=== PATIENT | female | born 1990 | race Caucasian/White ===

== ENCOUNTER 2021-12-25 12:05 | Outpatient (CLI) | payer BC, SELFPAY ==
[2021-12-26 15:04] LABS: Strep B DNA Probe NEGATIVE (Negative)
== END 2021-12-25 12:06 | disposition home or self-care (01) ==
PROVIDERS: Visit Provider Advanced Practice Midwife
DX: Z34.83 Encounter for supervision of other normal pregnancy, third trimester (principal); Z3A.35 35 weeks gestation of pregnancy
CPT/HCPCS: 87081; 87653

== ENCOUNTER 2022-01-14 16:01 | Outpatient (CLI) | payer BC, SELFPAY ==
[2022-01-14 16:10] VITALS: TEMP 37.1
[2022-01-14 16:11] VITALS: BP 102/70; PULSE 86; PULSE 87; O2SAT 99
--- NOTE | 2022-02-02 13:32 | PC.OBNST ---
NST Note NST Note Start: 01/14/22 16:05 Freq: ONCE Status: Discharge Protocol: Document 01/14/22 17:43 ASHA (Rec: 01/14/22 17:45 ALFREDOGERMAINE [id number]) NST Note 7 Para (# of births) 4 EDC 01/27/22 Gestational Age In Weeks & Days 38 Weeks & 1 Days Patient Presented with Complaint(s) of Contractions/cramping Reactive Yes Appropriate for Gestational Age Yes IOANA Mtz Date 01/14/22 Reactive Yes Appropriate for Gestational Age Yes IOANA Neff Date 01/14/22 OB NST charge Yes Complete NST Note via Write Note Yes The provider's electronic signature indicates the NST is reactive/appropriate for gestational age. *Note to provider: If an addendum is required, open the patient's chart and click on the note under the Nurse/Allied Health tab.
== END 2022-01-14 17:30 | disposition home or self-care (01) ==
LOC: OB OUT 16:02 → OB 16:03
PROVIDERS: Visit Provider Advanced Practice Midwife
DX: Z34.93 Encounter for supervision of normal pregnancy, unspecified, third trimester (principal)
CPT/HCPCS: 59025; 99213

== ENCOUNTER 2022-02-02 07:08 | Inpatient (IN) | payer BC, SELFPAY ==
[2022-02-02] VITALS (20 sets, daily range): BP systolic 101–123; BP diastolic 54–68; PULSE 53–82; RESP 14–18; TEMP 36.6–37.3; BMI 26.9
[2022-02-02 08:09] LABS: SARS PCR* Negative SARS-CoV-2 (Negative)
[2022-02-02] MEDS: miSOPROStoL 25 MCG/0.25 TABLET VAGINAL ×2 (08:11→12:05)
--- NOTE | 2022-02-02 09:32 | W.PM.LDBA ---
Subjective History of Present Illness Time Seen by Provider: 08:45 Date Seen: 02/02/22 Narrative: Patient is being admitted to Labor and Delivery for elective IOL. She is a 31 year old at 40.6 weeks gestation. Her full history and physical was dictated by Luis Miguel Lantigua on 01/08/22. Please see this for details. Her partner is at bedside for support. She desires an IOL, but would prefer to not use pitocin. OB problem List Blood Type: A positive : Max. 4 boys @ home: Kamran Kathleen, Ivan, Robby Expecting another boy: probably Max G7, P4 EDC 01/27/2022 based on transfer date. H&P completed 01/08/2022 by Luis Miguel Lantigua CNM 1. conceived through donor frozen embryo, following 's vasectomy. Weekly NSTs starting at 36 weeks per IVF protocol at [facility]; she prefers not to continue, did one at 36 weeks May consider at 40 weeks 2. MaterniT 21: No increased risk for aneuploidy. Male. 3. Episode of vaginal bleeding 07/13/2021: IUP with small KAILA on ultrasound. Resolved. 4. 20 FAS: ?tiny bilateral choroid plexus cysts?, intraventricular prominence in the anterior horns, and marginal cord insertion: [facility]: 09/13/2021: The identified abnormalities of the lateral ventricles are NOT noted today. -Recommend follow-up with a circumvallate placenta and marginal cord insertion. 12/12/21 -Recommend echo for IVF ; scheduled in 3-4 weeks : 10/11/2021: Records received: Normal echo, No additional echo recommended, return to primary care for continued care. -Recommend serial growth ultrasounds starting at 28 weeks due to circumvallate placenta; patient plans to have ultrasound with [facility] 11/14/21: No anomalies detected. EFW and growth parameters slightly ahead of establish dates. EFW 84%. Amniotic fluid volume appears normal. Cord insertion into placenta is no longer marginal. Circumvallate placenta is poorly visualized today. Recommendations: Follow-up ultrasound in 4 weeks to reassess growth, and in 7 weeks to start weekly BPP due to IVF. Patient request to have this done at [facility]. 11/27/21: (per patient) Marginal resolved per last US. Has next US for growth Aug 2. Growth is large for gestational age, uncertain EFW. They recommended weekly US starting at 36 weeks for IVF. Patient declines and prefers not to do them. Discussed our recommendations for NST starting at 36 week. She is undecided. 12/12/21: no anomalies, growth and EFW 74% consistent w/ dating, ADAMS nl, circumvallate placenta. Recommend: weekly surveillance at 36 weeks (BPP or NST). Declines US and NST as of 37 wks. 5.Varicose Veins. L Leg more prominent Declines compression OB - H&P: Exam Physical Exam: Vital signs: Pulse BP 76 117/65 02/02/22 09:14 02/02/22 09:14 Constitutional: Constitutional: no acute distress and cooperative Routine HEENT Exam: Head: Present normocephalic Routine Neck Exam: Neck: Present full ROM Routine Respiratory Exam: Respiratory: Present CTA bilaterally Routine Cardiovascular Exam: Cardiovascular: RRR Routine Exam: Patient deferred: external exam Detailed Labor and Delivery Exam: Patient Gravid: yes Dilation (cm): 1 (/-3 in office 2 days ago per ST[facility]) Effacement (%): 70 Contraction intensity: Mild (mild, irregular lila quinton ctx) Fetus (Single): Station: -3 Heart Rate Baseline: 125 Monitor Accelerations: Present Monitor Decelerations: None Fpc Variability: Average (6-10) Routine Extremities Exam: Extremities: Present full ROM Routine Back/Spine/Pelvis Exam: Back/Spine: full ROM Routine Skin Exam: Present intact Routine Neurological Exam: Present alert and oriented X3 Routine Psychiatric Exam: Present normal affect OB - Problem Based A/P Additional Plan (1) Supervision of resulting from assisted reproductive technology in third trimester: Status: Acute Plan Assessment: at 40.6 weeks GBS negative IVF IOL for dates per pt preference Plan: Admit to L & D IOL options previously reviewed, prefers cytotec. WIll do per protocol Intermittent or continuous monitoring per cytotec protocol. Candidate for analgesia of choice. Planning unmedicated . Desires waterbirth. Hep C negative and consent signed Anticipate progress to NVD. Delivery/Labor/Induction Plan Plan: induction Induction method: per misoprostol protocol
[2022-02-02 09:41] LABS: Basophils Percent Auto 0.3 % (0.0-3.0); Eosinophils Percent Auto 0.6 % (0.0-7.0); Hematocrit 37.1 % (33.0-51.0); Hemoglobin* 12.6 gm/dL (12.0-16.0); Immature Granulocytes Abs Auto 0.07 K/uL (0.00-0.30); Mean Corpuscular HGB Conc 34 gm/dL (32-36); Mean Corpuscular Hemoglobin 33 pg (26-34); Mean Corpuscular Volume 98 fL (80-100); Monocytes Percent Auto 4.1 % (0.0-11.0); Neutrophils Percent Auto 85.4 % (42.0-72.0); Platelet Count* 139 K/uL (140-440); RDW Coefficient of Variation % 12.2 % (11.5-15.5); White Blood Count* 12.14 K/uL (4.50-11.00)
[2022-02-02 10:08] LABS: Slide Review Reflex No
--- NOTE | 2022-02-02 21:37 | PM.OBPNL ---
Pain Control Time Seen by Provider: 21:00 Date Seen: 02/02/22 Pain control: tolerating well (laboring in tub) Comments: Gi is a , IOL for dates/elective. Cytotec this am X 2 doses. Ctx noted to by slightly stronger and 3rd dose held. She has continued to labor in various positions, including up and walking throughout the day. Ctx continued to increase in intensity, she she has expressed concerns about how long labor is taking. Reviewed options of position changes in and out of the tub, AROM, or continue expectant management. She did try a few positions in the tub, but then decided to proceed with AROM. Partner remains at bedside for support. Contractions Monitor mode: None Contraction pattern: Regular Contraction intensity: Moderate (mild, irregular lila quinton ctx) Pelvic Exam Dilation (cm): 5 Effacement (%): 70 Station: -2 Fetus (Single) Amniotic Membrane Status: AROM (large amount of clear fluid @ 2105) status: Category l (WNL per intermittant monitoring w/ doppler) Assessment and Plan Assessment: induction ongoing Plan: continue present management Comments: Assessment: at 40.6 weeks GBS neg Plan: AROM for large amount of clear fluid. Candidate for analgesia of choice. Planning unmedicated . Planning waterbirth - may return to tub when desired. Anticipate progress to NVD.
[2022-02-02] MEDS: OXYTOCIN 10 UNIT/ML INJ IM (22:32)
[2022-02-02] MEDS: ACETAMINOPHEN 500 MG TABLET 1000 MG PO (22:57)
--- NOTE | 2022-02-02 23:11 | PM.OBPNVD1 ---
OB - PN:Subj Subjective Time Seen by Provider: 23:11 Date Seen: 02/02/22 Interval history: The patient is a 31 year-old G7 now P5 admitted on 02/02/22 at 40.6 Weeks for IOL for dates/elective.? Cervical exam on admission was 1 cm/70 % effaced/-3 station with membranes intact in vertex presentation.? Contractions were mild, irregular lila quinton ctx.? AROM occurred at 2104 with clear fluid. ? Labor Analgesia:? none ? Pitocin:? for AMTSL only ? Labor onset:? 2104 ? Complete:? unknown ? Pushing:? 2209 ? heart tones during second stage were reassuring per intermittent monitoring w/ doppler. Gi continued to labor in the tub after AROM occurred. Ctx becoming stronger. Spontaneous pushing noted, and small crown noted. ? At 2226 a viable male infant delivered in vertex OA presentation over intact perineum via spontaneous vaginal delivery.? Infant was placed on maternal abdomen.? 2 large clots noted in the tub during delayed cord clamping, and decision made to clamp and cut and assist out of the tub. Cord was clamped and cut after a 5 minute delay.? Infant weight pending.? 8 at 1 minute and 9 at 5 minutes.? Shoulder dystocia: no.? Nuchal cord: no. ? Once in bed, bleeding noted to have slowed, and placenta ready to be delivered. Pllacenta delivered spontaneously and complete at 2236 with a 3 vessel cord. Fundus firm and bleeding remained WNL after. RN aware to monitor closely. ? Mother and infant were stable after delivery. ? Lacerations:? none ? Blood loss:450. QBL: 50, EBL 400, ? Sponge and needles counts are correct. Patient comments OB post-: no complaints [place] infant status: and doing well feeding status: exclusively OB - PN: Obj Exam Physical Exam: Vital signs: Temp Pulse Resp BP 98.1 F 75 18 114/58 L 02/02/22 21:58 02/02/22 23:10 02/02/22 21:58 02/02/22 23:10 OB - PN: Obj Data Labs Labs: Laboratory Results - last 24 hr 02/02/22 02/02/22 02/02/22 07:26 09:32 09:32 WBC 12.14 H RBC 3.80 L Hgb 12.6 Hct 37.1 MCV 98 MCH 33 MCHC 34 RDW Coeff of Shabbir 12.2 Plt Count 139 L Neut % (Auto) 85.4 H Lymph % (Auto) 9.0 L [place] % (Auto) 4.1 Eos % (Auto) 0.6 Baso % (Auto) 0.3 Neut # (Auto) 10.40 H Lymph # (Auto) 1.10 [place] # (Auto) 0.50 Eos # (Auto) 0.10 Baso # (Auto) 0.00 Abs Immat Gran (auto) 0.07 SARS-CoV-2 (PCR) Negative SARS-CoV-2 Blood Type A Positive Antibody Screen NEGATIVE OB - PN: A/P Vaginal Delivery Assessment and Plan (1) Supervision of resulting from assisted reproductive technology in third trimester: Status: Acute
--- NOTE | 2022-02-02 23:24 | P.OBPRC_ITS ---
Procedure Delivery date: 02/02/22 Procedure Done: [employer] Procedure Details: The patient is a 31 year-old G7 now P5 admitted on 02/02/22 at 40.6 Weeks for IOL for dates/elective.? Cervical exam on admission was 1 cm/70 % effaced/-3 station with membranes intact in vertex presentation.? Contractions were mild, irregular lila quinton ctx.? AROM occurred at 2104 with clear fluid. ? Labor Analgesia:? none ? Pitocin:? for AMTSL only ? Labor onset:? 2104 ? Complete:? unknown ? Pushing:? 2209 ? heart tones during second stage were reassuring per intermittent monitoring w/ doppler. Gi continued to labor in the tub after AROM occurred. Ctx becoming stronger. Spontaneous pushing noted, and small crown noted. ? At 2226 a viable male infant delivered in vertex OA presentation over intact perineum via spontaneous vaginal delivery.? Infant was placed on maternal abdomen.? 2 large clots noted in the tub during delayed cord clamping, and decision made to clamp and cut and assist out of the tub. Cord was clamped and cut after a 5 minute delay.? weight pending.? 8 at 1 minute and 9 at 5 minutes.? Shoulder dystocia: no.? Nuchal cord: no. ? Once in bed, bleeding noted to have slowed, and placenta ready to be delivered. Pllacenta delivered spontaneously and complete at 2236 with a 3 vessel cord. Fundus firm and bleeding remained WNL after. RN aware to monitor closely. ? Mother and infant were stable after delivery. ? Lacerations:? none ? Blood loss:450. QBL: 50, EBL 400, ? Sponge and needles counts are correct. Events: Labor Induction (With cytotec) Intrapartal Events: Labor Augmentation (With AROM) Induction method: per misoprostol protocol Delivery augmentation: rupture of membranes Delivery monitor: external FHT (intermitant dopplre) Route of delivery: Laceration description: None Estimated blood loss (mL): 450 Anesthesia type: None Disposition: floor Infant Gender: Male presentation: vertex Cord Description: 3 Vessels OB Vag Delivery Procedures Additional Procedures ECV: No [employer] Catheter Insertion: No NST: No D&C: No Laceration Repair: No Tubal Ligation : No Other: No
[2022-02-03] VITALS (17 sets, daily range): BP systolic 95–122; BP diastolic 58–82; PULSE 54–84; RESP 16; TEMP 36.4–37; O2SAT 95–97
[2022-02-03] MEDS: IBUPROFEN 600 MG TABLET PO ×3 (01:14→17:11)
[2022-02-03] MEDS: ACETAMINOPHEN 500 MG TABLET 1000 MG PO ×3 (06:06→19:46)
--- NOTE | 2022-02-03 08:27 | PM.OBPNVD1 ---
OB - PN:Subj Subjective Date Seen: 02/03/22 Patient comments OB post-: no complaints, pain well controlled, tolerating diet and flatus present [place] status: and doing well [place] feeding status: exclusively Narrative: The patient is a 31 year old G 7 P 5025 at 40 6/7 weeks gestation that was admitted to the Center on 02/02/22 for IOL for elective/post-dates. She had an uncomplicated vaginal waterbirth delivery. She delivered a viable male Max. She is breast feeding. the patient has done well. She desires to go home tomorrow morning. OB - PN: Obj Exam Physical Exam: Vital signs: Temp Pulse Resp BP Pulse Ox O2 Del Method 97.6 F 54 L 16 108/69 96 02/03/22 07:29 02/03/22 07:29 02/03/22 07:29 02/03/22 07:29 02/03/22 07:29 02/03/22 07:29 Constitutional: Constitutional: no acute distress and cooperative Routine HEENT Exam: Head: Present atraumatic Routine Neck Exam: Neck: Present full ROM Detailed Neck Exam: Thyroids: Comments: Supple Routine Respiratory Exam: Respiratory: Present CTA bilaterally Routine Cardiovascular Exam: Cardiovascular: Present RRR Routine Abdominal Exam: Fundus: Present firm (u/u) Routine Exam: Perineum Description: Edematous Comments: Lochia: small Routine Back/Spine/Pelvis Exam: Back/Spine: Present full ROM Routine Skin Exam: Skin: Present dry, intact and warm Routine Neurological Exam: Neurological: Present alert and oriented X3 Routine Psychiatric Exam: Psychiatric: Present normal affect and normal thought process OB - PN: Obj Data Labs Labs: Laboratory Results - last 24 hr 02/02/22 02/02/22 09:32 09:32 WBC 12.14 H RBC 3.80 L Hgb 12.6 Hct 37.1 MCV 98 MCH 33 MCHC 34 RDW Coeff of Shabbir 12.2 Plt Count 139 L Neut % (Auto) 85.4 H Lymph % (Auto) 9.0 L [place] % (Auto) 4.1 Eos % (Auto) 0.6 Baso % (Auto) 0.3 Neut # (Auto) 10.40 H Lymph # (Auto) 1.10 [place] # (Auto) 0.50 Eos # (Auto) 0.10 Baso # (Auto) 0.00 Abs Immat Gran (auto) 0.07 Blood Type A Positive Antibody Screen NEGATIVE OB - PN: A/P Vaginal Delivery Assessment and Plan (1) care and examination immediately after delivery: Status: Acute (2) Thrombocytopenia affecting : Status: Acute (3) Status post normal vaginal delivery: Status: Acute (4) Lactating mother: Status: Acute Plan day: 1 Plan: routine care
[2022-02-03] MEDS: DOCUSATE SODIUM 100 MG CAPSULE PO (09:00)
[2022-02-04] MEDS: IBUPROFEN 600 MG TABLET PO ×2 (00:52→08:05)
[2022-02-04 01:05] VITALS: BP 104/63; PULSE 60; RESP 16; TEMP 36.4; O2SAT 97
[2022-02-04 08:05] VITALS: TEMP 36.6
[2022-02-04] MEDS: DOCUSATE SODIUM 100 MG CAPSULE PO (08:05)
[2022-02-04 08:06] VITALS: BP 102/60; PULSE 60; RESP 16; TEMP 36.3; O2SAT 97
--- NOTE | 2022-02-04 10:14 | P.DS_ITS ---
DS: Providers Provider Time Seen by Provider: 10:00 Date Seen: 02/04/22 Date of admission: 02/02/22 07:08 Primary care physician: Not a Local Provider Admitting Clinician: Luli Holland CNM Attending Physician on discharge: Sara Lantigua CNM Date of Discharge: 02/04/22 DS: Diagnosis Discharge Diagnosis (1) Lactating mother: Status: Acute (2) state: Status: Acute Exam Const: Vital Signs, click to edit/add: Vital Signs - 24 hr 02/03/22 11:39 02/03/22 13:45 02/03/22 16:45 Temperature 98.6 F 97.9 F 97.7 F Pulse Rate [Blood Pressure Cuff] 68 70 Respiratory Rate 16 16 Blood Pressure [Le ft Arm] 108/72 107/82 Pulse Oximetry 96 97 Oxygen Delivery Me thod Room Air Room Air 02/03/22 17:11 02/03/22 14:45 02/03/22 18:00 Temperature 97.9 F 97.7 F 97.7 F Pulse Rate [Blood Pressure Cuff] Respiratory Rate Blood Pressure [Le ft Arm] Pulse Oximetry Oxygen Delivery Me thod 02/03/22 19:23 02/04/22 01:05 02/04/22 08:05 Temperature 98.2 F 97.6 F 97.9 F Pulse Rate [Blood Pressure Cuff] 66 60 Respiratory Rate 16 16 Blood Pressure [Le ft Arm] 103/66 104/63 Pulse Oximetry 97 97 Oxygen Delivery Me thod Room Air Room Air 02/04/22 08:06 Temperature 97.4 F L Pulse Rate [Blood Pressure Cuff] 60 Respiratory Rate 16 Blood Pressure [Le ft Arm] 102/60 Pulse Oximetry 97 Oxygen Delivery Me thod Room Air Documenting provider has reviewed patient's vital signs: yes Common normals: no apparent distress, average body habitus, oriented x3, healthy appearing, alert and well nourished General appearance: cooperative, comfortable, well kempt and well developed Orientation/consciousness: Yes awake, Yes oriented to person, Yes oriented to place and Yes oriented to time HENMT: Common normals: normocephalic and external nose normal Head and scalp: normocephalic Nose: external nose normal Eye: General eye: normal appearance of both eyes Neck & C-Spine: Common normals: full ROM and supple General: normal visual inspection Cervical spine: cervical ROM normal Chest: Common normals: inspection of chest normal and palpation of chest normal Chest: symmetrical chest wall rise Resp: Common normals: normal respiratory effort, no retractions, no use of accessory muscles and clear to auscultation bilaterally Effort & inspection: able to speak in complete sentences Auscultation: clear to auscultation bilaterally Cardio: Common normals: regular rate and regular rhythm Rate: regular rate Rhythm: regular rhythm GI: Common normals: Normal to inspection, nondistended, normoactive bowel sounds present and soft to palpation Inspection: normal to inspection Auscultation: normoactive bowel sounds Palpation: soft and tender : Bimanual exam- vagina & uterus: other (Involuting) Uterus: 1/U and firm Lochia: small Uterus palpation: uterus tender Back & Pelvis: Common normals: thoracic and lumbar spine normal to inspection and no thoracic nor lumbar tenderness Thoracic spine/upper back: normal to inspection and thoracic ROM normal Lumbar spine/lower back: normal to inspection and lumbar ROM normal Extremity: Common normals: normal to inspection and full ROM General: normal exam except as noted Left lower extremity: lower leg (varicose veins - medial malleolus and popliteal, pt reports improved) Left lower leg: inspection Neuro: Common normals: oriented x3 Sensorium/orientation: awake, alert, oriented to person, oriented to place and oriented to time Speech: speech normal Psych: Common normals: mental status grossly normal, thought process normal, cooperative, affect normal, speech normal and activity/motor behavior normal Appearance: grossly normal and well kempt Attitude: calm and engaged Activity/motor behavior: appropriate eye contact Speech: normal speech Thought process: normal thought process Thought content: normal thought content Attention/concentration: attention grossly intact Memory/cognition: memory grossly intact Insight: insight good Judgement: judgment good Skin: Common normals: no rashes or lesions noted General skin exam: no rashes or lesions noted OB - DS: Summary Hospital Course Hospital Course: Santos mccloud 31 year old G 7 P 5 at 41 0/7 weeks gestation that was admitted to the Center on 02/02/22 for IOL r/t postdates. She had an uncomplicated vaginal delivery. She delivered a viable male infant, Max. She is breast feeding and reports it is going well. the patient has done well. Max supportive at bedside. Elicited and answered questions. Planning to discharge home today. Peripartum Data Infant delivery method: Vaginal Laceration description: None complications: none Gender: Male Discharge Plan: Home Time Spent with Patient Time attestation: Total time spent providing and/or coordinating discharge services: Time spent: Less than 30 minutes Discharge Plan Discharge Disposition: Home, Self-Care Date of Admission: 02/02/22 07:08 Attending Provider on Discharge: Sara Lantigua Primary Care Provider: Provider,Not a Local Condition: Stable Anticipated Discharge Date/Time: 02/04/22 10:22 Discharge Medications: New docusate sodium 100 mg Capsule 100 mg PO DAILY Qty: 0 0RF ibuprofen 600 mg Tablet 600 mg PO Q6H PRNQty: 0 0RF acetaminophen 500 mg Tablet 1,000 mg PO Q6H PRNQty: 0 0RF Continued prenat.vits,niles,[id number] Tablet 1 tab PO QDAY omega-3 fatty acids 1,000 mg capsule 1,000 mg PO QDAY Adult 50 Plus Probiotic 4 billion cell capsule 4,000 mmu cells PO ONCE Discharge Orders: Discharge Order (Routine); Ordered 02/04/22 Ordered By: Sara Lantigua Patient Education: OB Vaginal/Breast Feeding Activity Restrictions/Additional Instructions: Discharge instructions were reviewed with the patient including signs and symptoms of infection and home going medications Nothing vaginally for 6 weeks: no tampons or intercourse Do not drive while taking narcotic pain medication(s) Off Work or School for 6 weeks Symptoms to report to doctor: * Bleeding that saturates more than one pad per hour * Passing clots larger than the size of a golf ball * Pain not relieved by prescribed medication * Fever above 100.4 degrees Fahrenheit * A foul vaginal odor * Difficulty in emotions, mood, and functions * Thoughts of hurting yourself and/or * Painful, reddened area in your breast * Any drainage, redness, or tenderness in your IV/epidural site * Severe headache that doesn't improve after taking medications * Changes in vision, including temporary loss of vision, blurred vision, and/or light sensitivity * Upper abdominal pain (usually under ribs on the right side) * Decrease in urination or painful, frequent urinating * Chest pain * Shortness of breath * Tenderness or pain with redness and/swelling in the calf(s) of your leg 2-week visit: discuss feeding concerns, review control options and screen for anxiety/depression. 6-week visit for an annual exam. consultation services are available to all mothers and babies for the first year after delivery.? To make an appointment, please call [phone]. Activity Level: Activity as Tolerated Discharge Diet: Regular Follow Up Appointments: [facility] [Provider Group] Forms: [employer] Info Instructions
[2022-02-04 10:53] VITALS: TEMP 36.5
[2022-02-04] MEDS: ACETAMINOPHEN 500 MG TABLET 1000 MG PO (10:53)
== END 2022-02-04 11:55 | disposition home or self-care (01) | DRG 560 ==
PROVIDERS: Advanced Practice Midwife; Admitting Provider Advanced Practice Midwife; Visit Provider Advanced Practice Midwife
DX: O48.0 Post-term pregnancy (principal); O99.12 Other diseases of the blood and blood-forming organs and certain disorders involving the immune mechanism complicating childbirth; D69.6 Thrombocytopenia, unspecified; Z3A.40 40 weeks gestation of pregnancy; Z37.0 Single live birth
CPT/HCPCS: 36415; 59200; 85025; 86850; 86900; 86901; 87635; A9270; J2590